=== PATIENT | male | born 1965 | race Caucasian/White ===

== ENCOUNTER 2021-02-12 00:33 | Emergency (ER) | payer SELFPAY ==
[~2021-02-12] VITALS: Ht 185.4 cm; Wt 79.5 kg
[2021-02-12 00:34] VITALS: BP 150/72
== END 2021-02-12 01:03 ==
LOC: ER 00:34
DX: F10.129 Alcohol abuse with intoxication, unspecified (principal); V87.7XXA Person injured in collision between other specified motor vehicles (traffic), initial encounter; Y93.89 Activity, other specified; Y92.488 Other paved roadways as the place of occurrence of the external cause; Y99.8 Other external cause status; Y90.9 Presence of alcohol in blood, level not specified
CPT/HCPCS: 99283